=== PATIENT | female | born 1965 | race American Indian/Alaskan Native ===

== ENCOUNTER 2016-09-29 20:58 | Inpatient (IN) | payer MEDICAID ==
[2016-09-29 21:42] LABS: Basophils % (Auto) 0.6 % (0.0-1.8); Hematocrit 34.7 % (30.3-42.9); Hemoglobin 11.5 gm/dl (10.1-14.3); Mean Corpuscular HGB Conc 33 % (30-34); Mean Corpuscular Hemoglobin 31 pg (28-32); Mean Corpuscular Volume 93 fl (79-97); Platelet Count 350 K/mm3 (140-440); Red Blood Count 3.71 M/mm3 (3.65-5.03); Red Cell Distribution Width 16.9 % (13.2-15.2); White Blood Count 12.8 K/mm3 (4.5-11.0)
[2016-09-29 21:52] LABS: INR 0.9 (0.87-1.13)
[2016-09-29 21:53] LABS: Partial Thromboplastin Time 27.7 Sec. (24.2-36.6)
--- NOTE | 2016-09-29 22:03 | Cat Scan Report ---
FINAL REPORT PROCEDURE: CT HEAD/BRAIN WO CON TECHNIQUE: Computerized tomography of the head was performed without contrast material. HISTORY: neuro deficits \T\lt; 6hrs or sx present upon awakening COMPARISON: No prior studies are available for comparison. FINDINGS: No CT evidence of intracranial mass, hemorrhage, acute territorial infarction, or hydrocephalus. The intracranial arteries are symmetric in density. The calvarium is intact. Mild right maxillary sinus mucosal thickening. IMPRESSION: No CT evidence of acute intracranial abnormality
[2016-09-29 22:08] LABS: Anion Gap 19 mmol/L; Blood Urea Nitrogen 20 mg/dL (7-17); Carbon Dioxide 28 mmol/L (22-30); Chloride 98.4 mmol/L (98-107); Glucose 152 mg/dL (65-100); Potassium 3.5 mmol/L (3.6-5.0); Sodium 142 mmol/L (137-145)
[2016-09-29] MEDS ORDERED: PLAVIX PO ONE (22:56)
--- NOTE | 2016-09-29 22:59 | Emergency Department Report ---
ED General Adult HPI - General Chief complaint: Neuro Symptoms/Deficit Stated complaint: CHEST PAIN Time Seen by Provider: 09/29/16 22:47 Source: patient, family, RN notes reviewed, old records reviewed Mode of arrival: Wheelchair Limitations: No Limitations - History of Present Illness Initial comments: Primary care Dr.: Dr. Suazo Past medical history: Hypertension, hypothyroidism, fibromyalgia, high cholesterol this is a 51-year-old female. She is previously unknown to me. The patient presents to the ER with multiple complaints. The patient's main complaint is resolved left-sided weakness. This started last night. This has resolved. The patient also describes multiple other complaints, including feeling like her skin was stretching and burning, having a knot on the back of her neck, and having burning chest pain, upper back burning, and fingertip numbness. The symptoms do not appear to have any exacerbating or relieving factors. There is no leg pain. There is no leg swelling. No recent trips greater than 4 hours. No recent hospital admissions. As per her old medical records, patient had a negative cardiac catheterization a few years ago, and a negative stress test in 2013 -: Sudden Location: left, upper extremity, lower extremity Improves with: none Worsens with: none Associated Symptoms: chest pain, loss of appetite, malaise, weakness. denies: confusion - Related Data Home Medications Medication Instructions Recorded Confirmed Last Taken Amitriptyline [Elavil] 25 mg PO QHS 04/27/15 09/29/16 04/26/15 Levothyroxine [Synthroid] 75 mcg PO QAM 04/27/15 09/29/16 04/27/15 Ranitidine HCl [Zantac 150 MG TAB] 150 mg PO QDAY 04/27/15 09/29/16 04/27/15 amLODIPine [Norvasc] 5 mg PO QDAY 04/27/15 09/29/16 04/27/15 Previous Rx's Medication Instructions Recorded Last Taken Type Ibuprofen [Motrin] 800 mg PO Q8HR PRN #30 tablet 04/27/15 Unknown Rx oxyCODONE /ACETAMINOPHEN [Percocet 1 tab PO Q6HR PRN #20 tablet 04/27/15 Unknown Rx 5/325] Allergies Allergy/AdvReac Type Severity Reaction Status Date / Time aspirin Allergy Unknown Verified 04/27/15 11:17 ED Review of Systems ROS: Stated complaint: CHEST PAIN Other details as noted in HPI ED Past Medical Hx - Past Medical History Previous Medical History?: Yes Hx Hypertension: Yes Additional medical history: hyperthyroid. fibromyagia. high cholestrol - Surgical History Past Surgical History?: Yes Additional Surgical History: left knee surgery. right knee surgery. back surgery (lipoma). heart cath- 4 years ago - Social History Smoking Status: Current Every Day Smoker Substance Use Type: None - Medications Home Medications: Home Medications Medication Instructions Recorded Confirmed Last Taken Type Amitriptyline [Elavil] 25 mg PO QHS 04/27/15 09/29/16 04/26/15 History Ibuprofen [Motrin] 800 mg PO Q8HR PRN #30 tablet 04/27/15 09/29/16 Unknown Rx Levothyroxine [Synthroid] 75 mcg PO QAM 04/27/15 09/29/16 04/27/15 History Ranitidine HCl [Zantac 150 MG TAB] 150 mg PO QDAY 04/27/15 09/29/16 04/27/15 History amLODIPine [Norvasc] 5 mg PO QDAY 04/27/15 09/29/16 04/27/15 History oxyCODONE /ACETAMINOPHEN [Percocet 1 tab PO Q6HR PRN #20 tablet 04/27/15 Unknown Rx 5/325] ED Physical Exam - General Limitations: No Limitations General appearance: alert, in no apparent distress - Head Head exam: Present: atraumatic, normocephalic - Eye Eye exam: Present: normal appearance, PERRL, EOMI. Absent: nystagmus - ENT ENT exam: Present: normal exam, normal orophraynx, mucous membranes moist, normal external ear exam - Neck Neck exam: Present: normal inspection, full ROM. Absent: tenderness, meningismus - Respiratory Respiratory exam: Present: normal lung sounds bilaterally. Absent: respiratory distress, wheezes, rales, rhonchi, stridor, chest wall tenderness, accessory muscle use, decreased breath sounds, prolonged expiratory - Cardiovascular Cardiovascular Exam: Present: regular rate, normal rhythm, normal heart sounds. Absent: bradycardia, tachycardia, irregular rhythm, systolic murmur, diastolic murmur, rubs, gallop - GI/Abdominal GI/Abdominal exam: Present: soft, normal bowel sounds. Absent: distended, tenderness, guarding, rebound, rigid, pulsatile mass - Extremities Exam Extremities exam: Present: normal inspection, full ROM, normal capillary refill. Absent: tenderness, pedal edema, joint swelling, calf tenderness - Back Exam Back exam: Present: normal inspection, full ROM. Absent: tenderness, CVA tenderness (R), CVA tenderness (L), muscle spasm, paraspinal tenderness, vertebral tenderness - Neurological Exam Neurological exam: Present: alert, oriented X3, normal gait, other (Extraocular movements intact. Tongue midline. No facial droop. Facial sensation intact to light touch in the V1, V2, V3 distribution bilaterally. 5 and 5 strength in 4 extremities.. Sensation is intact to light touch in 4 extremities.). Absent : motor sensory deficit - Psychiatric Psychiatric exam: Present: normal affect, normal mood - Skin Skin exam: Present: warm, dry, intact, normal color. Absent: rash ED Course Vital Signs 09/29/16 09/29/16 09/30/16 21:11 23:13 00:01 Temperature 99.2 F Pulse Rate 97 H 87 94 H Respiratory 18 16 16 Rate Blood Pressure 141/88 Blood Pressure 111/64 160/111 [Left] O2 Sat by Pulse 98 97 97 Oximetry - Reevaluation(s) Reevaluation #1: 09/30/16 02:04 differential diagnosis: Transient ischemic attack, pneumonia, acute coronary syndrome, fibromyalgia flare, GERD, gastritis, conversion disorder, anxiet assessment and plan: 51-year-old female with complaints consistent with transient ischemic attack, no back to baseline, and multiple other nonspecific complaints. She has a GCS of 15, with an NIH score of 0, her physical exam is unremarkable. Her laboratory studies are unremarkable. She walks with a steady gait. She is not a TPA candidate given that symptoms started greater than 4.5 hours ago, and given that she has an NIH score of 0 at this time. Chest pain is nonspecific, it is not her main complaint, she is no pulmonary embolus or DVT risk factors, low risk by well's criteria, saturating well. EKG shows sinus tachycardia, troponins negative. Case is discussed with the Hospital physician, Dr. Caicedo, who accepts the patient to his service for chest pain and transient ischemic attack. 09/30/16 02:05 ED Medical Decision Making - Lab Data Result diagrams: 09/29/16 21:25 09/29/16 21:25 Vital Signs 09/29/16 09/29/16 09/30/16 21:11 23:13 00:01 Temperature 99.2 F Pulse Rate 97 H 87 94 H Respiratory 18 16 16 Rate Blood Pressure 141/88 Blood Pressure 111/64 160/111 [Left] O2 Sat by Pulse 98 97 97 Oximetry Labs 09/29/16 09/29/16 09/29/16 21:25 21:25 21:25 WBC 12.8 H RBC 3.71 Hgb 11.5 Hct 34.7 MCV 93 MCH 31 MCHC 33 RDW 16.9 H Plt Count 350 Lymph % (Auto) 29.6 [place] % (Auto) 6.6 Eos % (Auto) 3.0 Baso % (Auto) 0.6 Lymph # 3.8 [place] # 0.8 Eos # 0.4 Baso # 0.1 Seg Neutrophils % 60.2 Seg Neutrophils # 7.7 PT 12.1 L INR 0.90 APTT 27.7 Thrombin Time Sodium 142 Potassium 3.5 L Chloride 98.4 Carbon Dioxide 28 Anion Gap 19 BUN 20 H Creatinine 0.8 Estimated GFR > 60 BUN/Creatinine Ratio 25.00 Glucose 152 H POC Glucose Calcium 9.0 Troponin T < 0.010 Blood Type Antibody Screen NAYELY Antibody Screen 09/29/16 09/29/16 09/29/16 21:30 21:30 21:58 WBC RBC Hgb Hct MCV MCH MCHC RDW Plt Count Lymph % (Auto) [place] % (Auto) Eos % (Auto) Baso % (Auto) Lymph # [place] # Eos # Baso # Seg Neutrophils % Seg Neutrophils # PT INR APTT Thrombin Time 18.2 Sodium Potassium Chloride Carbon Dioxide Anion Gap BUN Creatinine Estimated GFR BUN/Creatinine Ratio Glucose POC Glucose 177 H Calcium Troponin T Blood Type A POSITIVE Antibody Screen TNR NAYELY Antibody Screen Negative 09/30/16 00:29 WBC RBC Hgb Hct MCV MCH MCHC RDW Plt Count Lymph % (Auto) [place] % (Auto) Eos % (Auto) Baso % (Auto) Lymph # [place] # Eos # Baso # Seg Neutrophils % Seg Neutrophils # PT INR APTT Thrombin Time Sodium Potassium Chloride Carbon Dioxide Anion Gap BUN Creatinine Estimated GFR BUN/Creatinine Ratio Glucose POC Glucose Calcium Troponin T < 0.010 Blood Type Antibody Screen NAYELY Antibody Screen - EKG Data -: EKG Interpreted by Sd Rate: tachycardia - EKG Data When compared to previous EKG there are: no significant change 09/30/16 02:08 sinus tachycardia, 105 bpm, borderline left axis deviation, not consistent with STEMI, unchanged from prior EKG April 2015 - Radiology Data Radiology results: report reviewed, image reviewed interpreted by me: X-ray the chest was negative. Right lower lobe atelectasis. Noncontrast CT scan of the brain is negative. Patient allergic to aspirin. She is given Plavix. Critical care attestation.: If time is entered above; I have spent that time in minutes in the direct care of this critically ill patient, excluding procedure time. ED Disposition Clinical Impression: TIA (transient ischemic attack) Disposition: OP ADMITTED IP TO THIS HOSP Is pt being admited?: Yes Does the pt Need Aspirin: No Condition: Stable Referrals: PRIMARY CARE, [Primary Care Provider] - 3-5 Days
[2016-09-29] MEDS ORDERED: TYLENOL PO ONE (23:36)
--- NOTE | 2016-09-30 03:42 | History and Physical Report ---
History of Present Illness Date of examination: 09/29/16 Chief complaint: Chest pain History of present illness: Patient is a 51-year-old woman with history of fibromyalgia, hypertension, hypothyroidism, dyslipidemia and tobacco dependency who presents with multiple complaints including substernal moderate intense intermittent nonradiating chest burning without any aggravating or relieving factor to started yesterday. She also had left-sided weakness that started yesterday with bilateral finger tingling and facial numbness which all resolved. She has loss of appetite and feel weak and tired but denies any loss consciousness, severe headaches, nausea vomiting abdominal pain. She denies any fevers chills. She does have intermittent nonproductive cough. Chest x-ray is pending. Primary care Dr.: Dr. Suazo Past medical history: As HPI Past surgical history: Hysterectomy, left total knee replacement, back surgery with removal of a lipoma Social history: Tobacco dependency, I have advised her to quit, no alcohol or drugs, full code Family history: CVA, diabetes mellitus and hypertension Medications and Allergies Allergies Allergy/AdvReac Type Severity Reaction Status Date / Time aspirin Allergy Unknown Verified 04/27/15 11:17 Home Medications Medication Instructions Recorded Confirmed Last Taken Type Amitriptyline [Elavil] 25 mg PO QHS 04/27/15 09/29/16 04/26/15 History Ibuprofen [Motrin] 800 mg PO Q8HR PRN #30 tablet 04/27/15 09/29/16 Unknown Rx Levothyroxine [Synthroid] 75 mcg PO QAM 04/27/15 09/29/16 04/27/15 History Ranitidine HCl [Zantac 150 MG TAB] 150 mg PO QDAY 04/27/15 09/29/16 04/27/15 History amLODIPine [Norvasc] 5 mg PO QDAY 04/27/15 09/29/16 04/27/15 History oxyCODONE /ACETAMINOPHEN [Percocet 1 tab PO Q6HR PRN #20 tablet 04/27/15 Unknown Rx 5/325] Review of Systems All systems: negative (as HPI and all other ROS reviewed and negative.) Exam - Physical Exam Narrative exam: GEN: WDWN, NAD, AWAKE, ALERT, ORIENTATED 3 HEENT: NCAT, PERRL, EOMI, OP CLEAR NECK: SUPPLE, NO THYROMEGALY, NO JVD, NO LAD CVS: RRR, NORMAL S1S2 LUNGS/CHEST: CTA B, NORMAL CHEST EXPANSION B, GOOD AIR ENTRY B ABD: SOFT NTND, GBS, NO REBOUND OR GUARDING EXT/SKIN: NO SIGNIFICANT EDEMA OR RASH MSK: FROM X 4 EXTREMITIES NEURO: CN 2-12 GROSSLY INTACT, NO FOCAL DEFICITS PSY: CALM - Constitutional Vitals: Temp Pulse Resp BP Pulse Ox 99.2 F 94 H 16 160/111 97 09/29/16 21:11 09/30/16 00:01 09/30/16 00:01 09/30/16 00:01 09/30/16 00:01 Results - Labs CBC & Chem 7: 09/29/16 21:25 09/29/16 21:25 Labs: Abnormal lab results 09/29/16 09/29/16 09/29/16 Range/Units 21:25 21:25 21:25 WBC 12.8 H (4.5-11.0) K/mm3 RDW 16.9 H (13.2-15.2) % PT 12.1 L (12.2-14.9) Sec. Potassium 3.5 L (3.6-5.0) mmol/L BUN 20 H (7-17) mg/dL Glucose 152 H (65-100) mg/dL POC Glucose (70-105) 09/29/16 Range/Units 21:58 WBC (4.5-11.0) K/mm3 RDW (13.2-15.2) % PT (12.2-14.9) Sec. Potassium (3.6-5.0) mmol/L BUN (7-17) mg/dL Glucose (65-100) mg/dL POC Glucose 177 H (70-105) Assessment and Plan Patient is a 51-year-old woman with history of fibromyalgia, hypertension, hypothyroidism, dyslipidemia and tobacco dependency who presents with multiple complaints including substernal moderate intense intermittent nonradiating chest burning without any aggravating or relieving factor to started yesterday. She also had left-sided weakness that started yesterday with bilateral finger tingling and facial numbness which all resolved. She has loss of appetite and feel weak and tired but denies any loss consciousness, severe headaches, nausea vomiting abdominal pain. She denies any fevers chills. She does have intermittent nonproductive cough. Chest x-ray is pending. -TIA: Stroke protocol, MRI -Chest pain most likely GERD related, complex decision on using plavix ( allergic to asa) for TIA: Treat with PPI, obtain stress test -Accelerated hypertension: As needed when antihypertensive -SIRS without source of infection discovered so far: Get blood culture, urine ctx. cxr pending, treat empirically with iv rocephin pending cxr -Hypokalemia: Replace and monitor closely -DVT prophylaxis: Subcutaneous Lovenox Full code
[2016-09-30] MEDS ORDERED: MILK OF MAGNESIA PO PRN (03:46)
[2016-09-30] MEDS ORDERED: SODIUM CHLORIDE FLUSH SYRINGE 10 ML IV PRN (03:46)
[2016-09-30] MEDS ORDERED: TYLENOL PO PRN (03:46)
[2016-09-30] MEDS ORDERED: K-DUR PO ONE ×2 (03:47→04:40)
[2016-09-30] MEDS ORDERED: D50W (25GM) IV PRN (03:48)
[2016-09-30] MEDS ORDERED: NOVOLOG SUB-Q SCH (06:00)
[2016-09-30] MEDS ORDERED: LEXISCAN IV ONE ×2 (07:48→08:00)
--- NOTE | 2016-09-30 09:21 | XRay Report ---
AP CHEST: HISTORY: chest pain Borderline to mild cardiomegaly and pulmonary venous congestion are suspected. The lungs are clear. No evidence for pneumonia, CHF or pneumothorax. The bony structures are grossly intact. IMPRESSION: Borderline heart size and pulmonary vascularity.
--- NOTE | 2016-09-30 09:50 | Magnetic Resonance Report ---
MRI OF THE BRAIN WITHOUT CONTRAST: HISTORY: Stroke PROCEDURE: Multiplanar, multisequence MR imaging of the brain without IV contrast was performed. FINDINGS: The brain parenchyma signal intensity and its enrique white interface are within normal limits on all sequences. Minimal nonspecific chronic periventricular white matter changes are noted. No evidence for acute ischemia, hemorrhage or mass. No chronic infarct or extra-axial fluid collection. The midline structures are central. The basal cisterns are patent. Normal ventricular size. The orbital cavities and sella turcica demonstrate no abnormality. The visualized paranasal sinuses and mastoid air cells are well aerated. IMPRESSION: Unremarkable non-enhanced MRI of the brain.
--- NOTE | 2016-09-30 09:53 | Magnetic Resonance Report ---
MRA HEAD WITHOUT CONTRAST HISTORY: Stroke. [id number] imaging with MIP reformations of the [place] is submitted. The arteries appear widely patent and free of hemodynamically significant stenosis or aneurysm dilatation. The left A1 segment is aplastic. The left A2 segment arises from a patent anterior communicating artery. Both vertebral arteries are identified appearing patent as well. Moderate bilateral posterior communicating arteries are identified. IMPRESSION: Normal variant MRA head. No vessel occlusion is identified.
[2016-09-30] MEDS ORDERED: PEPCID PO SCH (10:00)
[2016-09-30] MEDS ORDERED: ROCEPHIN/NS 1 GM/50 ML 1 GM/50 ML BAG IV SCH (10:00)
[2016-09-30] MEDS ORDERED: PROTONIX PO SCH (10:00)
--- NOTE | 2016-09-30 11:40 | Event Note ---
Date: 09/30/16 Stress test completed. No copmlications. Stress test negative for inducible ischemia. EF 63%
--- NOTE | 2016-09-30 12:07 | Discharge Summary ---
Providers - Providers Date of Admission: 09/30/16 02:09 Date of discharge: 09/30/16 Attending physician: GILBERTO JARRETT 09/30/16 03:46 Occupational Therapy Evaluate and Treat [CONS] Routine Comment: Reason For Exam: Neuro deficits Physical Therapy Evaluation and Treat [CONS] Routine Comment: Reason For Exam: Neuro deficits Primary care physician: [employer] Hospitalization Reason for admission: cp Condition: Stable Hospital course: Patient is a 51-year-old woman with history of fibromyalgia, hypertension, hypothyroidism, dyslipidemia and tobacco dependency who presents with multiple complaints including substernal moderate intense intermittent nonradiating chest burning without any aggravating or relieving factor to started yesterday. She also had left-sided weakness that started yesterday with bilateral finger tingling and facial numbness which all resolved. She has loss of appetite and feel weak and tired but denies any loss consciousness, severe headaches, nausea vomiting abdominal pain. She denies any fevers chills. She does have intermittent nonproductive cough. Patient underwent MRI/MRA which is found be negative for CVA. Patient also underwent stress thallium or chest pain that was found to be negative. Etiology of chest pain is likely secondary to GERD. Chest x-ray and EKG were found to be within normal limits. Cardiac isoenzymes were also found to be negative. Patient also had an elevated TSH and Synthroid dose was increased. Patient's CVA symptoms have completely resolved and secondary prevention will be initiated. Patient will be discharged with statin and aspirin. Patient is felt to have received maximal hospital benefit and will be discharged home. Dedicated discharged on 35 minutes. Disposition: DISCHARGED TO HOME OR SELFCARE Time spent for discharge: 35 - Discharge Diagnoses (1) CVA (cerebral vascular accident) Status: Acute Qualifiers: CVA mechanism: C Precerebral and cerebral artery: P Laterality of affected vessel: L (2) GERD (gastroesophageal reflux disease) Status: Acute Qualifiers: Esophagitis presence: E (3) Chest pain Status: Acute Qualifiers: Chest pain type: C Ischemic chest pain type: I (4) TIA (transient ischemic attack) Status: Acute Qualifiers: Transient cerebral ischemia type: T Core Measure Documentation - Palliative Care Palliative Care/ Comfort Measures: Not Applicable - Core Measures Any of the following diagnoses?: none Exam - Constitutional Vitals: Temp Pulse Resp BP Pulse Ox 97.7 F 76 20 154/86 98 09/30/16 08:00 09/30/16 09:48 09/30/16 08:00 09/30/16 08:00 09/30/16 08:00 General appearance: Present: no acute distress, well-nourished - EENT Eyes: Present: PERRL ENT: hearing intact, clear oral mucosa - Neck Neck: Present: supple, normal ROM - Respiratory Respiratory effort: normal Respiratory: bilateral: CTA - Cardiovascular Heart Sounds: Present: S1 & S2. Absent: rub, click - Extremities Extremities: pulses symmetrical, No edema Peripheral Pulses: within normal limits - Abdominal General gastrointestinal: Present: soft, non-tender, non-distended, normal bowel sounds Female genitourinary: Present: normal - Integumentary Integumentary: Present: clear, warm, dry - Musculoskeletal Musculoskeletal: gait normal, strength equal bilaterally - Psychiatric Psychiatric: appropriate mood/affect, intact judgment & insight - Neurologic Neurologic: CNII-XII intact, moves all extremities Plan Activity: no restrictions Weight Bearing Status: Full Weight Bearing Diet: low fat, low cholesterol, low salt Follow up with: PRIMARY CARE,MD [Primary Care Provider] - 3-5 Days Prescriptions: Amitriptyline [Elavil] 25 mg PO QHS #30 tablet amLODIPine [Norvasc] 5 mg PO QDAY #30 tablet Clopidogrel [Plavix] 75 mg PO QDAY #30 tablet Ibuprofen [Motrin 800 MG tab] 800 mg PO Q8HR PRN #30 tablet PRN Reason: Pain Levothyroxine [Synthroid] 100 mcg PO QAM #30 tablet oxyCODONE /ACETAMINOPHEN [Percocet 5/325 mg] 1 tab PO Q6HR PRN #20 tablet PRN Reason: Pain Pantoprazole [Protonix TAB] 40 mg PO QDAY #30 tablet Ranitidine HCl [Zantac 150 MG TAB] 150 mg PO QDAY #30 tablet Simvastatin [Zocor TAB] 20 mg PO QHS #30 tablet
[2016-09-30 12:21] VITALS: BP 137/75
[2016-09-30] MEDS ORDERED: LOVENOX SUB-Q SCH (22:00)
[2016-09-30] MEDS ORDERED: ZOCOR PO SCH (22:00)
--- NOTE | 2016-10-02 03:47 | Treadmill Report ---
THALLIUM STRESS TEST: LEFT VENTRICLE: Left ventricular chamber size is within normal. Perfusion study demonstrates homogeneous uptake of the tracer in all segments, no significant perfusion defects identified. Gated analysis reveals normal left ventricular systolic function, ejection fraction 63%. CONCLUSION: Normal myocardial perfusion study. JOB# [id number] CA/NTS
== END 2016-09-30 16:28 | disposition home or self-care (01) | DRG 392 ==
LOC: ED 20:58 → 4A 09-30 02:09
PROVIDERS: ADMIT Internal Medicine; ATTEND Hospitalist
DX: K21.9 Gastro-esophageal reflux disease without esophagitis (principal); G45.9 Transient cerebral ischemic attack, unspecified; I10 Essential (primary) hypertension; E03.9 Hypothyroidism, unspecified; E78.5 Hyperlipidemia, unspecified; F17.200 Nicotine dependence, unspecified, uncomplicated; M79.7 Fibromyalgia; Z96.652 Presence of left artificial knee joint; R65.10 Systemic inflammatory response syndrome (SIRS) of non-infectious origin without acute organ dysfunction; E87.6 Hypokalemia; Z90.710 Acquired absence of both cervix and uterus; Z82.3 Family history of stroke; Z83.3 Family history of diabetes mellitus; Z82.49 Family history of ischemic heart disease and other diseases of the circulatory system; Z88.6 Allergy status to analgesic agent
CPT/HCPCS: 36415; 70450; 70544; 70551; 71010; 78452; 80048; 80061; 82962; 84443; 84484; 85025; 85610; 85670; 85730; 86850; 86900; 86901; 87040; 93005; 93010; 93017; 93880; A9502; J0696; J2785

== ENCOUNTER 2017-05-13 09:51 | Emergency (ER) | payer MEDICAID ==
[2017-05-13 10:02] VITALS: BP 129/79
[2017-05-13 13:22] LABS: Hematocrit 35.1 % (30.3-42.9); Mean Corpuscular HGB Conc 34 % (30-34); Mean Corpuscular Hemoglobin 34 pg (28-32); Mean Corpuscular Volume 99 fl (79-97); Platelet Count 352 K/mm3 (140-440); Red Blood Count 3.56 M/mm3 (3.65-5.03); White Blood Count 6.9 K/mm3 (4.5-11.0)
[2017-05-13 13:42] LABS: Alanine Aminotransferase 26 units/L (7-56); Albumin 4.3 g/dL (3.9-5); Albumin/Globulin Ratio 1.3 %; Alkaline Phosphatase 80 units/L (35-129); Anion Gap 17 mmol/L; BUN/Creatinine Ratio 19; Blood Urea Nitrogen 15 mg/dL (7-17); Calcium 9.1 mg/dL (8.4-10.2); Carbon Dioxide 29 mmol/L (22-30); Chloride 99.6 mmol/L (98-107); Glucose 104 mg/dL (65-100); Potassium 3.5 mmol/L (3.6-5.0); Sodium 142 mmol/L (137-145); Total Protein 7.7 g/dL (6.3-8.2)
[2017-05-13 13:44] LABS: Bilirubin,Direct < 0.2 mg/dL (0-0.2); Bilirubin,Indirect 0.1 mg/dL
--- NOTE | 2017-05-13 13:46 | Emergency Department Report ---
HPI - General Chief Complaint: Allergic Reaction Time Seen by Provider: 05/13/17 11:59 ED Past Medical Hx - Past Medical History Previous Medical History?: Yes Hx Hypertension: Yes Additional medical history: hyperthyroid. fibromyagia. high cholestrol - Surgical History Past Surgical History?: Yes Additional Surgical History: left knee surgery. right knee surgery. back surgery (lipoma). heart cath- 4 years ago - Social History Smoking Status: Current Every Day Smoker Substance Use Type: None - Medications Home Medications: Home Medications Medication Instructions Recorded Confirmed Last Taken Type Amitriptyline [Elavil] 25 mg PO QHS #30 tablet 09/30/16 Unknown Rx Clopidogrel [Plavix] 75 mg PO QDAY #30 tablet 09/30/16 Unknown Rx Ibuprofen [Motrin 800 MG tab] 800 mg PO Q8HR PRN #30 tablet 09/30/16 Unknown Rx Levothyroxine [Synthroid] 100 mcg PO QAM #30 tablet 09/30/16 Unknown Rx Pantoprazole [Protonix TAB] 40 mg PO QDAY #30 tablet 09/30/16 Unknown Rx Ranitidine HCl [Zantac 150 MG TAB] 150 mg PO QDAY #30 tablet 09/30/16 Unknown Rx Simvastatin [Zocor TAB] 20 mg PO QHS #30 tablet 09/30/16 Unknown Rx amLODIPine [Norvasc] 5 mg PO QDAY #30 tablet 09/30/16 Unknown Rx oxyCODONE /ACETAMINOPHEN [Percocet 1 tab PO Q6HR PRN #20 tablet 09/30/16 Unknown Rx 5/325 mg] ED Review of Systems ROS: Stated complaint: EYES NECK AND FACE SWELLING Other details as noted in HPI Physical Exam - Physical Exam Vital Signs: Vital Signs 05/13/17 09:58 Temperature 98.4 F Pulse Rate 98 H Respiratory 16 Rate Blood Pressure 129/79 O2 Sat by Pulse 97 Oximetry ED Course Vital Signs 05/13/17 09:58 Temperature 98.4 F Pulse Rate 98 H Respiratory 16 Rate Blood Pressure 129/79 O2 Sat by Pulse 97 Oximetry Critical care attestation.: If time is entered above; I have spent that time in minutes in the direct care of this critically ill patient, excluding procedure time. ED Disposition Condition: Stable Referrals: SILVANO ROBERTS MD [Primary Care Provider] - 3-5 Days
[2017-05-13 14:10] LABS: Basophils % (Manual) 0 % (0.0-1.8); Blastocytes % (Manual) 0 %
[2017-05-13 14:13] LABS: Anisocytosis 1+; Diff Status Complete; Platelet Estimate Consistent w Auto; Poikilocytosis Rare
--- NOTE | 2017-05-13 14:47 | Emergency Department Report ---
ED General Adult HPI - General Chief complaint: Allergic Reaction Stated complaint: EYES NECK AND FACE SWELLING Time Seen by Provider: 05/13/17 11:59 Source: patient Mode of arrival: Ambulatory Limitations: No Limitations - History of Present Illness Initial comments: 52-year-old female past medical history CAD, hypothyroidism, hypertension presents with complaint of one month of bilateral eyelid discomfort and intermittent swelling. Patient is awake alert and oriented 3 no audible wheezing or stridor no visible angioedema on inspection. No lip swelling swelling patient speaking in full sentences. denies exposure to new allergens including new medicines or new cosmetics or new pets denies any recent travel denies any history of food allergies. states she does have an allergy to aspirin but does not take aspirin. patient denies any paresthesias headaches lightheadedness or blurry vision associated with her reports of facial swelling. patient states that she occasionally gets some watery eye discharge. Patient is ambulatory. Not in acute distress. Patient states that she has noticed this slight facial swelling over the last month but has happened intermittently over the last several months. Onset/Timin -: month(s) Location: head, face Consistency: intermittent Associated Symptoms: denies other symptoms Treatments Prior to Arrival: none - Related Data Previous Rx's Medication Instructions Recorded Last Taken Type Amitriptyline [Elavil] 25 mg PO QHS #30 tablet 09/30/16 Unknown Rx Clopidogrel [Plavix] 75 mg PO QDAY #30 tablet 09/30/16 Unknown Rx Ibuprofen [Motrin 800 MG tab] 800 mg PO Q8HR PRN #30 tablet 09/30/16 Unknown Rx Levothyroxine [Synthroid] 100 mcg PO QAM #30 tablet 09/30/16 Unknown Rx Pantoprazole [Protonix TAB] 40 mg PO QDAY #30 tablet 09/30/16 Unknown Rx Ranitidine HCl [Zantac 150 MG TAB] 150 mg PO QDAY #30 tablet 09/30/16 Unknown Rx Simvastatin [Zocor TAB] 20 mg PO QHS #30 tablet 09/30/16 Unknown Rx amLODIPine [Norvasc] 5 mg PO QDAY #30 tablet 09/30/16 Unknown Rx oxyCODONE /ACETAMINOPHEN [Percocet 1 tab PO Q6HR PRN #20 tablet 09/30/16 Unknown Rx 5/325 mg] Allergies Allergy/AdvReac Type Severity Reaction Status Date / Time aspirin Allergy Unknown Verified 04/27/15 11:17 ED Review of Systems ROS: Stated complaint: EYES NECK AND FACE SWELLING Other details as noted in HPI Constitutional: denies: chills, fever Eyes: denies: eye pain, eye discharge, vision change ENT: as per HPI. denies: ear pain, throat pain Respiratory: denies: cough, shortness of breath, wheezing Cardiovascular: denies: chest pain, palpitations Endocrine: no symptoms reported Gastrointestinal: denies: abdominal pain, nausea, diarrhea Genitourinary: denies: urgency, dysuria, discharge Musculoskeletal: denies: back pain, joint swelling, arthralgia Skin: as per HPI. denies: rash, lesions Neurological: denies: headache, weakness, paresthesias Psychiatric: denies: anxiety, depression Hematological/Lymphatic: denies: easy bleeding, easy bruising ED Past Medical Hx - Past Medical History Previous Medical History?: Yes Hx Hypertension: Yes Additional medical history: hyperthyroid. fibromyagia. high cholestrol - Surgical History Past Surgical History?: Yes Additional Surgical History: left knee surgery. right knee surgery. back surgery (lipoma). heart cath- 4 years ago - Social History Smoking Status: Current Every Day Smoker Substance Use Type: None - Medications Home Medications: Home Medications Medication Instructions Recorded Confirmed Last Taken Type Amitriptyline [Elavil] 25 mg PO QHS #30 tablet 09/30/16 Unknown Rx Clopidogrel [Plavix] 75 mg PO QDAY #30 tablet 09/30/16 Unknown Rx Ibuprofen [Motrin 800 MG tab] 800 mg PO Q8HR PRN #30 tablet 09/30/16 Unknown Rx Levothyroxine [Synthroid] 100 mcg PO QAM #30 tablet 09/30/16 Unknown Rx Pantoprazole [Protonix TAB] 40 mg PO QDAY #30 tablet 09/30/16 Unknown Rx Ranitidine HCl [Zantac 150 MG TAB] 150 mg PO QDAY #30 tablet 09/30/16 Unknown Rx Simvastatin [Zocor TAB] 20 mg PO QHS #30 tablet 09/30/16 Unknown Rx amLODIPine [Norvasc] 5 mg PO QDAY #30 tablet 09/30/16 Unknown Rx oxyCODONE /ACETAMINOPHEN [Percocet 1 tab PO Q6HR PRN #20 tablet 09/30/16 Unknown Rx 5/325 mg] ED Physical Exam - General Limitations: No Limitations General appearance: alert, in no apparent distress - Head Head exam: Present: atraumatic, normocephalic, normal inspection (there is minimal to no bilateral upper eyelid swelling. There is no visible facial swelling otherwise no lip swelling no tongue swelling on clinical exam) - Eye Eye exam: Present: normal appearance, PERRL, EOMI - ENT ENT exam: Present: mucous membranes moist - Neck Neck exam: Present: normal inspection, full ROM - Respiratory Respiratory exam: Present: normal lung sounds bilaterally. Absent: respiratory distress - Cardiovascular Cardiovascular Exam: Present: regular rate, normal rhythm. Absent: systolic murmur, diastolic murmur, rubs, gallop - GI/Abdominal GI/Abdominal exam: Present: soft, normal bowel sounds - Extremities Exam Extremities exam: Present: normal inspection - Back Exam Back exam: Present: normal inspection - Neurological Exam Neurological exam: Present: alert, oriented X3, CN II-XII intact, normal gait - Expanded Neurological Exam Expanded Patient oriented to: Present: person, place, time Cranial nerves: EOM's Intact: Normal, Nystagmus: Normal Sensory exam: Upper Extremity Light Touch: Normal, Lower Extremity Light Touch: Normal Best Eye Response ([place]): (4) open spontaneously Best Motor Response ([place]): (6) obeys commands Best Verbal Response (Jose Alejandro): (5) oriented Jose Alejandro Total: 15 - Psychiatric Psychiatric exam: Present: normal affect, normal mood - Skin Skin exam: Present: warm, dry, intact, normal color. Absent: rash ED Course Vital Signs 05/13/17 09:58 Temperature 98.4 F Pulse Rate 98 H Respiratory 16 Rate Blood Pressure 129/79 O2 Sat by Pulse 97 Oximetry ED Medical Decision Making - Lab Data Result diagrams: 05/13/17 13:08 05/13/17 13:08 - Medical Decision Making A/P: Possible myxedema, hypothyroid disorder, reported facial swelling 1-case discussed with Dr. Calvillo who also reviewed patient's lab work and history with me 2-I informed patient that she has abnormal thyroid function panel and wished to discuss it further and its possible correlation with symptoms. Patient stated she needed to use the restroom and will continue conversation with me. Patient then eloped from the ED and informed paramedics and nurses at nurses station that she was leaving. Patient did not tell me this. I was not able to ascertain if patient is actually taking her blood pressure medicines or thyroid medicines consistently. 3-I called patient at listed cell phone number in medical record. This is a disconnected number. 4-I informed Dr. Calvillo of my clinical encounter with this patient Critical care attestation.: If time is entered above; I have spent that time in minutes in the direct care of this critically ill patient, excluding procedure time. ED Disposition Clinical Impression: Facial swelling, Procedure and treatment not carried out due to patient leaving prior to being seen by health care provider Disposition: 07 ELOPED Is pt being admited?: No Condition: Stable Instructions: Hypothyroidism (ED) Referrals: SILVANO ROBERTS MD [Primary Care Provider] - 3-5 Days Time of Disposition: 14:50
== END 2017-05-13 13:20 | disposition left against medical advice (07) ==
LOC: ED 09:51
DX: H57.8 Other specified disorders of eye and adnexa (principal); R22.0 Localized swelling, mass and lump, head; I10 Essential (primary) hypertension; F17.200 Nicotine dependence, unspecified, uncomplicated
CPT/HCPCS: 36415; 80048; 80074; 84439; 84443; 85007; 85025; 99282

== ENCOUNTER 2017-11-05 14:01 | Emergency (ER) | payer MEDICAID ==
[2017-11-05 14:36] VITALS: BP 146/89
[2017-11-05 15:34] LABS: Basophils # (Auto) 0.1 K/mm3 (0.0-0.1); Basophils % (Auto) 1.3 % (0.0-1.8); Eosinophils # (Auto) 0.3 K/mm3 (0.0-0.4); Eosinophils % (Auto) 4.1 % (0.0-4.3); Hematocrit 38.2 % (30.3-42.9); Hemoglobin 12.7 gm/dl (10.1-14.3); Lymphocytes # (Auto) 2.1 K/mm3 (1.2-5.4); Lymphocytes % (Auto) 30.3 % (13.4-35.0); Mean Corpuscular HGB Conc 33 % (30-34); Mean Corpuscular Hemoglobin 32 pg (28-32); Mean Corpuscular Volume 97 fl (79-97); Monocytes # (Auto) 0.4 K/mm3 (0.0-0.8); Monocytes % (Auto) 5.5 % (0.0-7.3); Platelet Count 412 K/mm3 (140-440); Red Blood Count 3.95 M/mm3 (3.65-5.03)
[2017-11-05 15:48] LABS: INR 0.96 (0.87-1.13)
[2017-11-05 16:07] LABS: Free T4 (Free Thyroxine) 0.1 ng/dL (0.76-1.46)
[2017-11-05 17:15] LABS: Alanine Aminotransferase 13 units/L (7-56); Albumin 4.8 g/dL (3.9-5); BUN/Creatinine Ratio 10; Blood Urea Nitrogen 9 mg/dL (7-17); Hemolysis Index 16
[2017-11-05 17:20] LABS: Bilirubin,Direct < 0.2 mg/dL (0-0.2)
== END 2017-11-05 14:56 | disposition left against medical advice (07) ==
LOC: ED 14:01
DX: R06.00 Dyspnea, unspecified (principal); Z53.21 Procedure and treatment not carried out due to patient leaving prior to being seen by health care provider
CPT/HCPCS: 36415; 80048; 80074; 83735; 84439; 84443; 85025; 85610; 85730; 86850; 86900; 86901